=== PATIENT | male | born 1975 | race Caucasian/White ===

== ENCOUNTER 2017-03-17 19:52 | Emergency (ER) | payer MEDICAID, OTHER ==
[2017-03-17 19:58] VITALS: BMI 30.9
[2017-03-17 20:01] VITALS: TEMP 98.5
--- NOTE | 2017-03-17 21:21 | ED PDOC ---
Arrival/HPI - General Chief Complaint: ENT Problem Time Seen by Provider: 03/17/17 20:05 Historian: Patient - History of Present Illness Narrative History of Present Illness (Text): 03/17/17 20:10 Juve Ambrosio is a 41 year old male who presents to the emergency department for evaluation of multiple episodes of epistaxis since yesterday evening. He was evaluated at [facility] [place] yesterday for these complaints and was discharged home after bleeding stopped. Patient was evaluated again at [facility] (formerly [facility] today after bleeding recurred. Bleeding was stopped s/p silver nitrate cauterization and was discharged home. Currently presents for evaluation of recurrent epistaxis. Not actively bleeding in the emergency department. Denies fever, chills, headache, dizziness, nausea, vomiting, or any other complaints at this time. Time/Duration: Other (yesterday ) Symptom Course: Unchanged Severity Level: Mild Activities at Onset: Light Past Medical History - Provider Review Nursing Documentation Reviewed: Yes - Infectious Disease Hx of Infectious Diseases: None - Psychiatric Hx Substance Use: No - Surgical History Other/Comment: abd surgery 1996 - Anesthesia Hx Anesthesia: Yes Hx Anesthesia Reactions: No Family/Social History - Physician Review Nursing Documentation Reviewed: Yes Family/Social History: No Known Family HX Smoking Status: Never Smoked Hx Alcohol Use: Yes Frequency of alcohol use: Socially Hx Substance Use: No Allergies/Home Meds Allergies/Adverse Reactions: Allergies No Known Allergies Allergy (Verified 03/17/17 19:57) Review of Systems - Physician Review All systems were reviewed & negative as marked: Yes - Review of Systems Constitutional: Normal. absent: Fatigue, Fevers ENT: Epistaxis (left nare) Respiratory: Normal. absent: SOB, Cough Cardiovascular: Normal. absent: Chest Pain, Palpitations Gastrointestinal: Normal. absent: Abdominal Pain, Diarrhea, Nausea, Vomiting Neurological: Normal. absent: Headache, Dizziness Physical Exam Vital Signs Reviewed: Yes Vital Signs Temp Pulse Resp BP Pulse Ox 03/17/17 20:00 98.5 F 90 19 135/93 H 98 Temperature: Afebrile Blood Pressure: Normal Pulse: Regular Respiratory Rate: Normal Appearance: Positive for: Well-Appearing, Non-Toxic, Comfortable Pain Distress: None Mental Status: Positive for: Alert and Oriented X 3 - Systems Exam Head: Present: Atraumatic, Normocephalic Pupils: Present: PERRL Extroacular Muscles: Present: EOMI Conjunctiva: Present: Normal Mouth: Present: Moist Mucous Membranes Nose (Internal): Present: No Active Bleeding, Epistaxis (left nare dried blood ) . No: Rhinorrhea, Septal Deviation, Septal Hematoma Respiratory/Chest: Present: Clear to Auscultation, Good Air Exchange. No: Respiratory Distress, Accessory Muscle Use Cardiovascular: Present: Regular Rate and Rhythm, Normal S1, S2. No: Murmurs Abdomen: Present: Normal Bowel Sounds. No: Tenderness, Distention, Peritoneal Signs Upper Extremity: Present: Normal Inspection. No: Cyanosis, Edema Lower Extremity: Present: Normal Inspection. No: Edema Neurological: Present: GCS=15, CN II-XII Intact, Speech Normal, Motor Func Grossly Intact, Normal Sensory Function Skin: Present: Warm, Dry, Normal Color. No: Rashes Psychiatric: Present: Alert, Oriented x 3, Normal Insight, Normal Concentration Medical Decision Making ED Course and Treatment: 03/17/17 20:10 Impression: A 41 year old male who presents to the emergency department complaining of unresolved epistaxis from left nare. Plan: -- nasal packing -- Reassess and disposition Progress Notes: 03/17/17 20:10 Bleeding stopped with good hemostasis following left nasal packing. Tolerated the procedure well. Will observe in emergency department for recurrent bleeding. 03/17/17 21:32 On reevaluation patient with no recurrent episodes of epistaxis. Advised to follow up with ENT within few days and return to emergency department for any new/worsening symptoms. Re-evaluation Time: 21:30 Reassessment Condition: Re-examined, Improved - Scribe Statement The provider has reviewed the documentation as recorded by the Joaquin Dasilva Provider Attestation: Provider Scribe Attestation: All medical record entries made by the Joaquin were at my direction and personally dictated by me. I have reviewed the chart and agree that the record accurately reflects my personal performance of the history, physical exam, medical decision making, and the department course for this patient. I have also personally directed, reviewed, and agree with the discharge instructions and disposition. Disposition/Present on Arrival - Present on Arrival Any Indicators Present on Arrival: No History of DVT/PE: No History of Uncontrolled Diabetes: No Urinary Catheter: No History of Decub. Ulcer: No History Surgical Site Infection Following: None - Disposition Have Diagnosis and Disposition been Completed?: Yes Diagnosis: Epistaxis Disposition: HOME/ ROUTINE Disposition Time: 21:30 Patient Problems: Current Active Problems Problem Status Onset Epistaxis Acute Condition: GOOD Discharge Instructions (ExitCare): Nosebleed (ED) Prescriptions: Amoxicillin 875 mg PO BID #14 tab Referrals: PCP,NO [Primary Care Provider] - Follow up with primary Cosmo Chavez DO [Doctor Osteopathy] - Follow up with primary Forms: [employer] (Sao Tomean)
[2017-03-17 21:41] VITALS: BP 132/90; PULSE 88; RESP 18; O2SAT 99
== END 2017-03-17 21:43 | disposition home or self-care (01) ==
LOC: ED 19:52
DX: R04.0 Epistaxis (principal)

== ENCOUNTER 2017-03-18 07:04 | Emergency (ER) | payer MEDICAID, OTHER ==
[2017-03-18 07:05] VITALS: BMI 30.9
[2017-03-18 07:20] VITALS: RESP 18; TEMP 97.9
[2017-03-18] MEDS ORDERED: Oxymetazoline 0.05% Nasal Spray (30 ml) NS STA (07:21)
[2017-03-18] MEDS ORDERED: Lidocaine 1% Inj (20ml) SC STA (07:21)
--- NOTE | 2017-03-18 07:30 | ED PDOC ---
Arrival/HPI - General Chief Complaint: ENT Problem Time Seen by Provider: 03/18/17 07:20 Historian: Patient - History of Present Illness Narrative History of Present Illness (Text): 03/18/17 07:16 A 41 male, who denies any past medical history, presents to the emergency department complaining of epistaxis since 02:00 this morning. Patient reports that he has been having multiple episodes of epistaxis for the last 2 days ago, which he began spontaneously. Patient states he was seen at [facility] [place] 2 days ago and then at a [facility] the same day. Patient had a cautery performed at bleeding site, but states nose bleed returned after 3 hours. Patient states he was seen at [facility] [place] yesterday, had nasal packing placed, and discharged home. Patient states while sleeping nose bleed returned and soaked throught the packing. Patient has not taken any medications, nor has been abusing cocaine. Patient denies of head trauma, loss of consciousness, headache, dizziness, vomiting, or any other complaints. Time/Duration: 4-6 hours (began again around 02:00 this morning) Symptom Onset: Gradual Symptom Course: Intermittent Activities at Onset: Rest, Light Context: Home Past Medical History - Provider Review Nursing Documentation Reviewed: Yes - Infectious Disease Hx of Infectious Diseases: None - Cardiac Hx Cardiac Disorders: No - Pulmonary Hx Respiratory Disorders: No - Neurological Hx Neurological Disorder: No - HEENT Hx HEENT Disorder: No - Renal Hx Renal Disorder: No - Endocrine/Metabolic Hx Endocrine Disorders: No - Hematological/Oncological Hx Blood Disorders: No - Integumentary Hx Dermatological Disorder: No - Musculoskeletal/Rheumatological Hx Musculoskeletal Disorders: No - Gastrointestinal Hx Gastrointestinal Disorders: No - Genitourinary/Gynecological Hx Genitourinary Disorders: No - Psychiatric Hx Psychophysiologic Disorder: No Hx Substance Use: No - Surgical History Other/Comment: abd surgery 1997 - Anesthesia Hx Anesthesia: Yes Hx Anesthesia Reactions: No Family/Social History - Physician Review Nursing Documentation Reviewed: Yes Family/Social History: No Known Family HX Smoking Status: Never Smoked Hx Alcohol Use: Yes Hx Substance Use: No Allergies/Home Meds Allergies/Adverse Reactions: Allergies No Known Allergies Allergy (Verified 03/17/17 19:57) Review of Systems - Physician Review All systems were reviewed & negative as marked: Yes - Review of Systems Constitutional: Normal ENT: Epistaxis Gastrointestinal: Normal. absent: Diarrhea, Nausea, Vomiting Musculoskeletal: Normal. absent: Other (head trauma) Neurological: Normal. absent: Headache, Dizziness, Other (loss of consciousness ) Physical Exam Vital Signs Reviewed: Yes Vital Signs Temp Pulse Resp BP Pulse Ox 03/18/17 09:05 64 18 118/90 98 03/18/17 08:10 60 18 128/93 H 98 03/18/17 07:16 97.9 F 61 18 126/83 99 Temperature: Afebrile Blood Pressure: Normal Pulse: Regular Respiratory Rate: Normal Appearance: Positive for: Well-Appearing, Non-Toxic Pain Distress: None Mental Status: Positive for: Alert and Oriented X 3 - Systems Exam Head: Present: Atraumatic, Normocephalic Pupils: Present: PERRL Extroacular Muscles: Present: EOMI Conjunctiva: Present: Normal Mouth: Present: Moist Mucous Membranes Nose (Internal): Present: Epistaxis (left nasal epistaxis). No: No Active Bleeding, Edematous Neck: Present: Normal Range of Motion Respiratory/Chest: Present: Clear to Auscultation, Good Air Exchange. No: Respiratory Distress, Accessory Muscle Use Cardiovascular: Present: Regular Rate and Rhythm, Normal S1, S2. No: Murmurs Abdomen: Present: Normal Bowel Sounds. No: Tenderness, Distention, Peritoneal Signs Back: Present: Normal Inspection Upper Extremity: Present: Normal Inspection. No: Cyanosis, Edema Lower Extremity: Present: Normal Inspection. No: Edema Neurological: Present: GCS=15, CN II-XII Intact, Speech Normal Skin: Present: Warm, Dry, Normal Color. No: Rashes Psychiatric: Present: Alert, Oriented x 3, Normal Insight, Normal Concentration Medical Decision Making ED Course and Treatment: 03/18/17 07:20 Impression: 41 year old male with epistaxis. Physical exam shows left nasal epistaxis. Plan: -- Lidocaine -- Afrin -- Reassess and disposition Prior Visits: Notes and results from previous visits were reviewed. Patient was last seen in the emergency department on 03/17/2017 for evaluation of multiple episodes of epistaxis. Progress Notes: 03/18/17 08:15 PROCEDURE: EPISTAXIS MANAGEMENT Performed by the emergency provider Consent: Informed consent was obtained after discussion of the risks, benefits, and alternatives to the procedure. Timeout: A timeout to verify the correct patient, procedure, and site was performed immediately prior to the procedure. Indication: Nasal bleeding control Location: bilateral nares Medication: 2 ml 50/50 Afrin and Lidocaine, with two nasal swabs. Bleeding Source: Trace bleeding in left naris, no identifiable source. No active bleeding in right naris. No posterior hematoma noted. Packin.5 nasal packing. Post-procedure: Good hemostasis. The patient was observed following procedure and no repeat episode of bleeding was noted. Patient tolerated the procedure well with no immediate complications. 03/18/17 08:[address] Elkins, ENT, who's aware and agrees with plan. States can follow up outpatient in his office. - Medication Orders Current Medication Orders: Discontinued Medications Amoxicillin/Clavulanate Potassium (Augmentin 875 Mg-125 Mg Tab) 1 tab PO STAT STA PRN Reason: Protocol Stop: 03/18/17 08:29 Last Admin: 03/18/17 08:56 Dose: 1 tab Lidocaine HCl (Lidocaine 1% (20ml)) 0 ml SC STAT STA Stop: 03/18/17 07:22 Last Admin: 03/18/17 07:42 Dose: 20 ml Comments: given to MD for use Oxymetazoline HCl (Afrin 0.05%) 0 ml NS STAT STA Stop: 03/18/17 07:22 Last Admin: 03/18/17 07:37 Dose: 1 spray - Scribe Statement Pattie Ceja Provider Scribe Attestation: All medical record entries made by the Scribe were at my direction and personally dictated by me. I have reviewed the chart and agree that the record accurately reflects my personal performance of the history, physical exam, medical decision making, and the department course for this patient. I have also personally directed, reviewed, and agree with the discharge instructions and disposition. Disposition/Present on Arrival - Present on Arrival Any Indicators Present on Arrival: No History of DVT/PE: No History of Uncontrolled Diabetes: No Urinary Catheter: No History of Decub. Ulcer: No History Surgical Site Infection Following: None - Disposition Have Diagnosis and Disposition been Completed?: Yes Diagnosis: Epistaxis Disposition: HOME/ ROUTINE Disposition Time: 09:05 Patient Plan: Discharge Condition: IMPROVED Discharge Instructions (ExitCare): Nosebleed (ED) Additional Instructions: Daily, thank you for letting us take care of you today. Your provider was Dr. Conner. You were treated for Nose Bleed. The emergency medical care you received today was directed at your acute symptoms. If you were prescribed any medication, please fill it and take as directed. It may take several days for your symptoms to resolve. Return to the Emergency Department if your symptoms worsen, do not improve, or if you have any other problems. Please contact your doctor or call one of the physicians/clinics you have been referred to that are listed on the Patient Visit Information form that is included in your discharge packet. Bring any paperwork you were given at discharge with you along with any medications you are taking to your follow up visit. Our treatment cannot replace ongoing medical care by a primary care provider (PCP) outside of the emergency department. Thank you for allowing the [facility] team to be part of your care today. If you had an X-Ray or CT scan: A Radiologist will review the ED reading if any change in treatment is needed we will contact you. If you had a blood, urine, or wound culture: It will take several days for the results, if any change in treatment is needed we will contact you. If you had an STI test: It will take 48 hours for the results. Please call after 1 week if you have not heard back. Prescriptions: Amoxicillin/Clavulanate [Augmentin 875 MG-125 MG] 1 tab PO BID #10 tab Referrals: Bob Elkins DO [Staff Provider] - Follow up with primary Forms: [employer] (Hungarian)
[2017-03-18] MEDS ORDERED: Amoxicillin-Clav 875-125 mg Tab PO STA (08:28)
[2017-03-18 08:29] VITALS: O2SAT 98
[2017-03-18 09:06] VITALS: BP 118/90; PULSE 64
== END 2017-03-18 09:05 | disposition home or self-care (01) ==
LOC: ED 07:04
DX: R04.0 Epistaxis (principal)

== ENCOUNTER 2017-11-06 10:41 | Emergency (ER) | payer OTHER ==
[2017-11-06 10:42] VITALS: BMI 30.9
--- NOTE | 2017-11-06 10:43 | ED PDOC ---
Arrival/HPI - General Time Seen by Provider: 11/06/17 10:43 Historian: Patient - History of Present Illness Narrative History of Present Illness (Text): 11/06/17 10:43 42 year old male, pmh including epistaxis/chronic pain with L5S1 spinal stenosis /disc protrusion with last MRI performed 09/19/2017 which he is schedule to see the neurosurgery next week , complaining of chronic lower back pain and lt. sided chest pain about 2 days ago. Pt. has no fall or trauma since 10/2017 MRI of the lumbar spine, feels like the same type of pain, occasional pain radiating to the RLE, no palpitation, no night sweat, stated that he had an episode of left sided chest pain about 2 days ago which was non-exertional, resolved now, no coughing, no recent traveling, no night sweat, no pleuritic pain, no other medical or psychological complaints. Past Medical History - Provider Review Nursing Documentation Reviewed: Yes - Infectious Disease Hx of Infectious Diseases: None - Cardiac Hx Cardiac Disorders: No - Pulmonary Hx Respiratory Disorders: No - Neurological Hx Neurological Disorder: No - HEENT Hx HEENT Disorder: No - Renal Hx Renal Disorder: No - Endocrine/Metabolic Hx Endocrine Disorders: No - Hematological/Oncological Hx Blood Disorders: No - Integumentary Hx Dermatological Disorder: No - Musculoskeletal/Rheumatological Hx Musculoskeletal Disorders: No - Gastrointestinal Hx Gastrointestinal Disorders: No - Genitourinary/Gynecological Hx Genitourinary Disorders: No - Psychiatric Hx Psychophysiologic Disorder: No Hx Substance Use: No - Surgical History Other/Comment: abd surgery 1997 - Anesthesia Hx Anesthesia: Yes Hx Anesthesia Reactions: No Family/Social History - Physician Review Nursing Documentation Reviewed: Yes Family/Social History: Unknown Family HX Smoking Status: Never Smoked Hx Alcohol Use: Yes Hx Substance Use: No Allergies/Home Meds Allergies/Adverse Reactions: Allergies No Known Allergies Allergy (Verified 11/06/17 10:50) Review of Systems - Review of Systems Constitutional: absent: Fatigue, Fevers Eyes: absent: Vision Changes ENT: absent: Hearing Changes Respiratory: absent: SOB, Cough Cardiovascular: absent: Chest Pain Gastrointestinal: absent: Abdominal Pain, Nausea, Vomiting Musculoskeletal: Back Pain. absent: Arthralgias, Neck Pain, Joint Swelling, Myalgias Skin: absent: Rash, Pruritis Neurological: absent: Headache, Dizziness Psychiatric: absent: Anxiety, Depression, Suicidal Ideation Physical Exam Vital Signs Reviewed: Yes Vital Signs Temp Pulse Resp BP Pulse Ox 11/06/17 12:15 98 F 65 18 130/89 98 11/06/17 10:46 98.3 F 73 18 123/87 95 Temperature: Afebrile Blood Pressure: Normal Pulse: Regular Respiratory Rate: Normal Appearance: Positive for: Well-Appearing, Non-Toxic, Comfortable Pain Distress: Moderate Mental Status: Positive for: Alert and Oriented X 3 - Systems Exam Head: Present: Atraumatic, Normocephalic Pupils: Present: PERRL Extroacular Muscles: Present: EOMI Conjunctiva: Present: Normal Ears: Present: NORMAL TM, Normal Canal. No: Erythema Mouth: Present: Moist Mucous Membranes Pharnyx: No: ERYTHEMA, EXUDATE, TONSILS ENLARGED Nose (External): Present: Atraumatic. No: Abrasion, Contusion, Laceration Nose (Internal): Present: Normal Inspection, No Active Bleeding. No: Rhinorrhea , Septal Hematoma, Epistaxis Neck: Present: Normal Range of Motion, Trachea Midline. No: Meningeal Signs, MIDLINE TENDERNESS, Paraspinal Tenderness, Lymphadenopathy Respiratory/Chest: Present: Clear to Auscultation, Good Air Exchange. No: Respiratory Distress, Accessory Muscle Use, Wheezes, Decreased Breath Sounds, Rales, Retracting, Rhonchi, Tachypneic, Tender to Palpation Cardiovascular: Present: Regular Rate and Rhythm, Normal S1, S2. No: Murmurs Abdomen: Present: Normal Bowel Sounds. No: Tenderness, Distention, Peritoneal Signs, Rebound, Guarding Back: Present: Normal Inspection, Other (no cva tenderness). No: CVA Tenderness , Midline Tenderness, Paraspinal Tenderness, Decubitus Ulcer Upper Extremity: Present: Normal Inspection. No: Cyanosis, Edema Lower Extremity: Present: Normal Inspection, NORMAL PULSES, Normal ROM, Deformity, Neurovascularly Intact, Capillary Refill < 2 s, Other. No: Edema, CALF TENDERNESS, Linda's Sign, Tenderness, Swelling, Temperature Abnormalties Neurological: Present: GCS=15, Speech Normal, Motor Func Grossly Intact, Gait Normal, Memory Normal Skin: Present: Warm, Dry, Normal Color. No: Rashes Psychiatric: Present: Alert, Oriented x 3, Normal Insight, Normal Concentration Medical Decision Making ED Course and Treatment: 11/06/17 11:14 -labs/cardiac enzyme -cxr -RLL Venuous doppler -ekg -IVF/toradol/valium/decadron -Observe and reassess 11/06/17 13:15 -HEART score is low, 1 point. -EKG: Sinus Bradycardia @ 59 BPM,no ST elevation or depression, T wave inversion on the lead III, no previous ekg available for comparison. -Chest X-ray: no active disease -RLE Venuous Doppler: as per preliminary report, no acute DVT -Labs show no acute findings -Cardiac enzyme is negative after 12 hours of onset, asymptomatic, -Urinalysis show no UTI -Pt. feels completely relief, no pain, request to be discharged home, no emergent work up indicated at this time. Pt. is walking around with no pain, no focal neurological deficits. Cane ordered for him. 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 - Lab Interpretations Lab Results: 11/06/17 11:21 11/06/17 11:21 Lab Results 11/06/17 12:05: Urine Color Yellow, Urine Appearance Clear, Urine pH 7.5, Ur Specific [place] 1.015, Urine Protein Negative, Urine Glucose (UA) Negative, Urine Ketones Negative, Urine Blood Negative, Urine Nitrate Negative, Urine Bilirubin Negative, Urine Urobilinogen 0.2, Ur Leukocyte Esterase Negative 11/06/17 11:21: WBC 4.3 L, RBC 5.07, Hgb 14.6, Hct 42.8, MCV 84.4, MCH 28.8, MCHC 34.1, RDW 13.9, Plt Count 243, MPV 10.8, Gran % 46.1 L, Lymph % (Auto) 42.9 H, [place] % (Auto) 8.9 H, Eos % (Auto) 1.9, Baso % (Auto) 0.2, Gran # 1.98, Lymph # (Auto) 1.8, [place] # (Auto) 0.4, Eos # (Auto) 0.1, Baso # (Auto) 0.01 11/06/17 11:21: Sodium 145, Potassium 4.5, Chloride 106, Carbon Dioxide 28, Anion Gap 16, BUN 10, Creatinine 0.8, Est GFR ( Amer) > 60, Est GFR (Non- Af Amer) > 60, Random Glucose 81, Calcium 9.1, Total Bilirubin 0.5, AST 31, ALT 63 H, Alkaline Phosphatase 65, Lactate Dehydrogenase 526, Total Creatine Kinase 119, Troponin I 0.01, Total Protein 6.9, Albumin 4.0, Globulin 2.9, Albumin/ Globulin Ratio 1.4 - RAD Interpretation Radiology Orders: 11/06/17 11:03 DUPLEX LOWER EXTRM VEIN RIGHT [US] Stat 11/06/17 11:04 CHEST TWO VIEWS (PA/LAT) [RAD] Stat RLE Venuous Doppler: as per preliminary report, no acute DVT PROCEDURE: Right lower extremity venous US HISTORY: Leg pain and swelling. Evaluate for DVT. PHYSICIAN(S): Yury Kennedy M.D. TECHNIQUE: Duplex sonography and color-flow Doppler with graded compression were used to evaluate the deep venous system of the right lower extremity. FINDINGS: The visualized deep venous system of the right lower extremity is sonographically normal and compressible. Normal waveforms and augmentation are seen. There is no sonographic evidence for deep venous thrombosis in the visualized segments of the right lower extremity. IMPRESSION: 1. No sonographic evidence for deep venous thrombosis in the visualized segments of the right lower extremity. Chest xray: HISTORY: history of chest pain COMPARISON: No prior. TECHNIQUE: Chest PA and lateral FINDINGS: LUNGS: No active pulmonary disease. PLEURA: No significant pleural effusion identified. No pneumothorax apparent. CARDIOVASCULAR: No radiographic findings to suggest acute or significant cardiovascular disease. OSSEOUS STRUCTURES: No significant abnormalities. VISUALIZED UPPER ABDOMEN: Normal. OTHER FINDINGS: None. IMPRESSION: No active disease. Board Member: Radiologist - EKG Interpretation EKG Interpretation (Text): 11/06/17 11:16 EKG: Sinus Bradycardia @ 59 BPM,no ST elevation or depression, T wave inversion on the lead III, no previous ekg available for comparison. Interpreted by ED Physician: Yes Type: 12 lead EKG Comparison: No previous EKG avail. - Medication Orders Current Medication Orders: Discontinued Medications Dexamethasone (Decadron Inj) 8 mg IVP STAT STA Stop: 11/06/17 11:04 Last Admin: 11/06/17 11:26 Dose: 8 mg IVP Administration Document 11/06/17 11:26 LA (Rec: 11/06/17 11:27 LA [id number]) Charges for Administration # of IVP Administrations 1 Diazepam (Valium) 5 mg PO ONCE ONE PRN Reason: Protocol Stop: 11/06/17 11:03 Last Admin: 11/06/17 11:27 Dose: 5 mg Ketorolac Tromethamine (Toradol) 30 mg IVP STAT STA Stop: 11/06/17 11:03 Last Admin: 11/06/17 11:27 Dose: 30 mg MAR Pain Assessment Document 11/06/17 11:27 LA (Rec: 11/06/17 11:27 LA [id number]) Pain Reassessment Is this a pain reassessment? No Sleep Is patient sleeping during reassessment? No Presence of Pain Presence of Pain Yes Location Upper or Lower Lower Pain Location Body Site Back Description Description Constant Intensity of Pain at present 7 IVP Administration Document 11/06/17 11:27 LA (Rec: 11/06/17 11:27 LA [id number]) Charges for Administration # of IVP Administrations 1 Re-Assess: MAR Pain Assessment Document 11/06/17 12:27 LA (Rec: 11/06/17 12:49 LA [id number]) Pain Reassessment Is this a pain reassessment? Yes Sleep Is patient sleeping during reassessment? 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 Disposition/Present on Arrival - Present on Arrival Any Indicators Present on Arrival: No History of DVT/PE: No History of Uncontrolled Diabetes: No Urinary Catheter: No History of Decub. Ulcer: No History Surgical Site Infection Following: None - Disposition Have Diagnosis and Disposition been Completed?: Yes Diagnosis: History of chest pain, Lumbar disc herniation with radiculopathy Disposition: HOME/ ROUTINE Disposition Time: 12:15 Patient Plan: Discharge Patient Problems: Current Active Problems Problem Status Onset History of chest pain Acute Lumbar disc herniation with radiculopathy Acute Condition: IMPROVED Additional Instructions: -Discharge home with naproxen, flexeril, lidoderm patch, follow up with your own pmd and spinning and winding supervisor/pain management/neurosurgery within 2 days, avoid strenuous exercise or activity, return to the ER for any new or worsening signs or symptoms. Prescriptions: Cyclobenzaprine [Cyclobenzaprine HCl] 10 mg PO TID PRN #21 tab PRN Reason: Other Lidocaine 5% [Lidoderm] 1 patch TOP DAILY PRN #14 patch PRN Reason: Other Naproxen 500 mg PO BID PRN #24 tablet PRN Reason: [facility] - Follow up with primary Montez Omalley MD [Staff Provider] - Follow up with primary Forms: WORK NOTE
[2017-11-06 11:40] LABS: BASO # 0.01 K/mm3 (0.0-2.0); BASO % 0.2 % (0.0-3.0); EOS # 0.1 (0.0-0.7); EOS % 1.9 % (1.5-5.0); GRAN # 1.98 (1.4-6.5); GRAN % 46.1 % (50.0-68.0); HEMOGLOBIN 14.6 g/dL (14.0-18.0); LYMPH # 1.8 (1.2-3.4); LYMPH % 42.9 % (22.0-35.0); MEAN CELL VOLUME 84.4 fl (80.0-105.0); MEAN CORPUSCULAR HEMOGLOBIN 28.8 pg (25.0-35.0); MEAN CORPUSCULAR HGB CONC 34.1 g/dl (31.0-37.0); MEAN PLATELET VOLUME 10.8 fl (7.0-11.0); MONO # 0.4 (0.1-0.6); MONO % 8.9 % (1.0-6.0); RBC 5.07 10^6/uL (3.5-6.1); RED CELL DISTRIBUTION WIDTH 13.9 % (11.5-14.5); WHITE BLOOD COUNT 4.3 10^3/ul (4.5-11.0)
[2017-11-06 11:49] LABS: ALB/GLOB RATIO 1.4 (1.1-1.8); CALCIUM 9.1 mg/dL (8.4-10.5); GFR AFRICAN-AMERICAN > 60; GFR NON-AFRICAN AMERICAN > 60
[2017-11-06 11:52] LABS: ALT/SGPT 63 U/L (7-56); AST/SGOT 31 U/L (17-59); BLOOD UREA NITROGEN 10 mg/dL (7-21)
[2017-11-06 12:10] LABS: TROPONIN I 0.01 ng/mL
--- NOTE | 2017-11-06 12:12 | RAD ---
HISTORY: history of chest pain COMPARISON: No prior. TECHNIQUE: Chest PA and lateral FINDINGS: LUNGS: No active pulmonary disease. PLEURA: No significant pleural effusion identified. No pneumothorax apparent. CARDIOVASCULAR: No radiographic findings to suggest acute or significant cardiovascular disease. OSSEOUS STRUCTURES: No significant abnormalities. VISUALIZED UPPER ABDOMEN: Normal. OTHER FINDINGS: None. IMPRESSION: No active disease.
[2017-11-06 12:18] VITALS: PULSE 65; TEMP 98
[2017-11-06 12:30] LABS: PH,URINE 7.5 (4.7-8.0); URINE BILIRUBIN NEGATIVE (NEGATIVE); URINE BLOOD NEGATIVE (NEGATIVE); URINE GLUCOSE (UA) NEGATIVE (NEGATIVE); URINE LEUKOCYTE ESTERASE NEGATIVE Leu/uL (NEGATIVE); URINE PROTEIN NEGATIVE mg/dL (<30 mg/dL); URINE UROBILINOGEN 0.2 E.U./dL (<1 E.U./dL)
[2017-11-06 12:38] LABS: URINE APPEARANCE CLEAR (CLEAR); URINE COLOR YELLOW (YELLOW)
--- NOTE | 2017-11-06 13:18 | US ---
PROCEDURE: Right lower extremity venous US HISTORY: Leg pain and swelling. Evaluate for DVT. PHYSICIAN(S): Yury Kennedy M.D. TECHNIQUE: Duplex sonography and color-flow Doppler with graded compression were used to evaluate the deep venous system of the right lower extremity. FINDINGS: The visualized deep venous system of the right lower extremity is sonographically normal and compressible. Normal waveforms and augmentation are seen. There is no sonographic evidence for deep venous thrombosis in the visualized segments of the right lower extremity. IMPRESSION: 1. No sonographic evidence for deep venous thrombosis in the visualized segments of the right lower extremity.
[2017-11-06] MEDS ORDERED: Oxycodone/Acetaminophen 5/325 mg Tab PO STA (13:22)
[2017-11-06 14:09] LABS: BARBITURATES, UR NEGATIVE (NEGATIVE); BENZODIAZEPINES, UR NEGATIVE (NEGATIVE); OPIATES, UR NEGATIVE (NEGATIVE); PHENCYCLIDINE, UR NEGATIVE (NEGATIVE)
[2017-11-06 14:17] VITALS: BP 130/85; RESP 19; O2SAT 99
--- NOTE | 2017-11-06 15:32 | CARD ---
APPROVED REPORT EKG Measurement Heart [id number] <Conclusion> Sinus bradycardia Otherwise normal ECG
== END 2017-11-06 14:15 | disposition home or self-care (01) ==
LOC: ED 10:41
DX: M51.16 Intervertebral disc disorders with radiculopathy, lumbar region (principal); R07.9 Chest pain, unspecified
CPT/HCPCS: 71046; 80053; 80324; 80345; 80346; 80349; 80353; 80358; 80361; 81003; 82550; 83615; 83992; 84484; 85025; 93005; 93971; 96374; 96375; 99284; J1100; J1885